=== PATIENT | male | born 2000 ===

== ENCOUNTER 2019-12-18 04:24 | Emergency (ER) | payer SELFPAY ==
--- NOTE | 2019-12-18 05:59 | ER ---
Nurse's Notes [facility] Name: Oleg Paige Age: 19 yrs Sex: Male : 2000 Arrival Date: 12/18/2019 Time: 04:28 Bed 7 Private MD: Diagnosis: Thoracic pain, unspecified Presentation: 12/17 04:40 Chief complaint: Patient states: I am having back pain started yesterday. it is like rr5 stabbing pain when I twist or move. denies trauma, no fever no abdominal pain, denies problem in urinating. Coronavirus screen: Proceed with normal triage. Ebola Screen: Patient negative for fever greater than or equal to 101.5 degrees Fahrenheit, and additional compatible Ebola Virus Disease symptoms Patient denies exposure to infectious person. Patient denies travel to an Ebola-affected area in the 21 days before illness onset. Initial Sepsis Screen: Does the patient meet any 2 criteria? No. Patient's initial sepsis screen is negative. Does the patient have a suspected source of infection? No. Patient's initial sepsis screen is negative. Risk Assessment: Do you want to hurt yourself or someone else? Patient reports no desire to harm self or others. Onset of symptoms was December 17, 2019. 04:40 Method Of Arrival: Ambulatory rr5 04:40 Acuity: CHAZ 3 rr5 Triage Assessment: 04:47 General: Appears in no apparent distress. uncomfortable, Behavior is calm, cooperative, ao appropriate for age. Musculoskeletal: Circulation, motion, and sensation intact. Range of motion: intact in all extremities. Historical: - Allergies: 04:43 No Known Allergies; rr5 - Home Meds: 04:43 None [Active]; rr5 - PMHx: 04:43 None; rr5 - PSHx: 04:43 None; rr5 - Immunization history:: Adult Immunizations not up to date. - Social history:: Smoking status: unknown Patient/guardian denies using alcohol, street drugs. - Family history:: not pertinent. - Hospitalizations: : No recent hospitalization is reported. Screenin:43 Abuse screen: Denies threats or abuse. Denies injuries from another. Nutritional rr5 screening: No deficits noted. Tuberculosis screening: No symptoms or risk factors identified. Fall Risk None identified. Total Pineda Fall Scale indicates No Risk (0-24 pts). Assessment: 04:44 General: Appears in no apparent distress. uncomfortable, well groomed, well developed, ao well nourished. Pain: Complains of pain in Back pain Pain radiates to left side Pain currently is 10 out of 10 on a pain scale. Quality of pain is described as stabbing, Pain began 1 day ago. Neuro: Level of Consciousness is awake, alert, obeys commands, Oriented to person, place, time, situation, Appropriate for age Moves all extremities. Full function Speech is normal, Facial symmetry appears normal, Pupils are PERRLA. Cardiovascular: Capillary refill < 3 seconds Patient's skin is warm and dry. Respiratory: Reports pain with respiration since yesterday Airway is patent Respiratory effort is even, unlabored, Respiratory pattern is regular, symmetrical. GI: No signs and/or symptoms were reported involving the gastrointestinal system. GI: Abdomen is non-distended. : No signs and/or symptoms were reported regarding the genitourinary system. EENT: No signs and/or symptoms were reported regarding the EENT system. Derm: Skin is intact, Skin is dry, Skin is normal, black, Skin temperature is warm. Musculoskeletal: Circulation, motion, and sensation intact. Range of motion: intact in all extremities. 05:33 Reassessment: Patient appears in no apparent distress at this time. No changes from ao previously documented assessment. Patient is alert, oriented x 3, equal unlabored respirations, skin warm/dry/pink. Waiting on dispo Orders. 05:35 Reassessment: Dr Hutchinson at bedside. ao 06:05 Reassessment: DC instructions given to patient. Patient agree with POC and to follow up ao with PCP. Patient agree to take ibuprofen OTC at home for patient. Educations given about ibuprofen. Vital Signs: 04:40 BP 126 / 63; Pulse 57; Resp 19; Temp 98.1; Pulse Ox 100% ; Weight 111.13 kg; Height 6 rr5 ft. 5 in. (195.58 cm); Pain 10/10; 05:33 BP 160 / 102; Pulse 70; Resp 19; Pulse Ox 98% on R/A; ao 04:40 Body Mass Index 29.05 (111.13 kg, 195.58 cm) rr5 ED Course: 04:28 Patient arrived in ED. ag3 04:30 Santos Hutchinson MD is Attending Physician. rn 04:38 EKG done, by ED staff, reviewed by Santos Hutchinson MD. ao 04:43 Triage completed. rr5 04:43 Edgar Queen, RN is Primary Nurse. ao 04:43 Arm band placed on right wrist. EKG completed in triage. Results shown to MD. rr5 04:44 Patient has correct armband on for positive identification. Bed in low position. Call rr5 light in reach. monitoring coordinator on. Pulse ox on. NIBP on. 05:03 XRAY Chest Pa And Lat (2 Views) In Process Unspecified. EDMS 06:05 No provider procedures requiring assistance completed. Patient did not have IV access ao during this emergency room visit. Administered Medications: No medications were administered Outcome: 05:58 Discharge ordered by . rn 06:05 Discharged to home ambulatory. ao 06:05 Condition: stable 06:05 Discharge instructions given to patient, Instructed on discharge instructions, follow up and referral plans. Demonstrated understanding of instructions, follow-up care, medications. 06:06 Patient left the ED. ao Signatures: Dispatcher [employer] EDMS Santos Hutchinson MD MD rn Edgar Queen, RN RN Charity Golden ag3 Luis Stephens RN RN rr5
--- NOTE | 2019-12-18 05:59 | EDPHYS ---
Physician Documentation [facility] Name: Oleg Paige Age: 19 yrs Sex: Male : 2000 Arrival Date: 12/18/2019 Time: 04:28 Bed 7 Private MD: ED Physician Santos Hutchinson HPI: 12/17 04:52 This 19 yrs old Black Male presents to ER via Ambulatory with complaints of Back Pain. rn 04:52 The patient presents with pain that is acute, with no known mechanism of injury. The rn symptoms are located in the right posterior thorax. 04:53 Onset: The symptoms/episode began/occurred yesterday. The pain does not radiate. rn Associated signs and symptoms: The patient has no apparent associated signs or symptoms, Pertinent negatives: abdominal pain, fever, incontinence, numbness, tingling, urinary retention, vomiting, weakness. Modifying factors: The patient symptoms are alleviated by nothing, the patient symptoms are aggravated by any movement. Severity of symptoms: At their worst the symptoms were mild, in the emergency department the symptoms are unchanged. The patient has not experienced similar symptoms in the past. The patient has not recently seen a physician. Reports right posterior pain, located along right posterior ribs, hurts to touch/twist/breathe, no fever/cough/sob. No trauma. . Historical: - Allergies: 04:43 No Known Allergies; rr5 - Home Meds: 04:43 None [Active]; rr5 - PMHx: 04:43 None; rr5 - PSHx: 04:43 None; rr5 - Immunization history:: Adult Immunizations not up to date. - Social history:: Smoking status: unknown Patient/guardian denies using alcohol, street drugs. - Family history:: not pertinent. - Hospitalizations: : No recent hospitalization is reported. ROS: 04:53 Constitutional: Negative for fever, chills, and weight loss, Eyes: Negative for injury, rn pain, redness, and discharge, Neck: Negative for injury, pain, and swelling, Cardiovascular: Negative for palpitations, and edema, Respiratory: Negative for shortness of breath, cough, wheezing Abdomen/GI: Negative for abdominal pain, nausea, vomiting, diarrhea, and constipation, : Negative for injury, bleeding, discharge, and swelling, MS/Extremity: Negative for injury and deformity, Skin: Negative for injury, rash, and discoloration, Neuro: Negative for headache, weakness, numbness, tingling, and seizure. Exam: 04:53 Constitutional: This is a well developed, well nourished patient who is awake, alert, rn and in no acute distress. Ambulatory to room without difficulty or distress Head/Face: Normocephalic, atraumatic. Chest/axilla: Normal chest wall appearance and motion. Nontender with no deformity. No lesions are appreciated. Cardiovascular: Bradycardic, regular rhythm, intact distal pulses Respiratory: Speaking full sentences. No increased work of breathing, no retractions or nasal flaring. Abdomen/GI: soft, non-tender Back: No spinal tenderness. No costovertebral tenderness. MS/ Extremity: Pulses equal, no cyanosis. Neurovascular intact. Full, normal range of motion. Equal circumference. Neuro: Awake and alert, GCS 15, oriented to person, place, time, and situation. Cranial nerves II-XII grossly intact. Motor strength 5/5 in all extremities. Sensory grossly intact. Cerebellar exam normal. Normal gait. 04:56 ECG was reviewed by the Attending Physician. rn Vital Signs: 04:40 BP 126 / 63; Pulse 57; Resp 19; Temp 98.1; Pulse Ox 100% ; Weight 111.13 kg; Height 6 rr5 ft. 5 in. (195.58 cm); Pain 10/10; 05:33 BP 160 / 102; Pulse 70; Resp 19; Pulse Ox 98% on R/A; ao 04:40 Body Mass Index 29.05 (111.13 kg, 195.58 cm) rr5 MDM: 04:30 Patient medically screened. rn 05:55 Differential diagnosis: pleurisy, chest wall pain, pneumothorax, pneumonia. Data rn reviewed: vital signs, nurses notes, EKG, radiologic studies, plain films, and as a result, I will discharge patient. Counseling: I had a detailed discussion with the patient and/or guardian regarding: the historical points, exam findings, and any diagnostic results supporting the discharge/admit diagnosis, lab results, radiology results, the need for outpatient follow up, to return to the emergency department if symptoms worsen or persist or if there are any questions or concerns that arise at home. Special discussion: Based on the patient's history, exam, and Dx evaluation, there is no indication for emergent intervention or inpatient Tx. It is understood by the patient/guardian that if the Sx's persist or worsen they need to return immediately for re-evaluation. I discussed with the patient/guardian in detail that at this point there is no indication for admission to the hospital. It is understood, however, that if the symptoms persist or worsen the patient needs to return immediately for re-evaluation. Based on the history and exam findings, there is no indication for further emergent testing or inpatient evaluation. I discussed with the patient/guardian the need to see the primary care provider for further evaluation of the symptoms. ED course: No ischemia on ecg, normal CXR, will dc home with return precautions and motrin prn.. 12/17 04:39 Order name: XRAY Chest Pa And Lat (2 Views) rn 12/17 04:39 Order name: EKG - Nurse/Tech; Complete Time: 04:43 rn EC:56 Rate is 54 beats/min. Rhythm is regular. QRS Maxwell is Normal. TX interval is normal. QRS rn interval is normal. QT interval is normal. No Q waves. T waves are Normal. No ST changes noted. Clinical impression: Sinus bradycardia. Interpreted by me. Reviewed by me. Administered Medications: No medications were administered Disposition: 12/18/19 05:58 Discharged to Home. Impression: Thoracic pain, unspecified. - Condition is Stable. - Discharge Instructions: Chest Wall Pain, Pleurisy. - Medication Reconciliation Form, Thank You Letter, Antibiotic Education, Prescription Opioid Use form. - Follow up: Private Physician; When: As needed; Reason: Recheck today's complaints, Re-evaluation by your physician. - Problem is new. - Symptoms have improved. Signatures: Dispatcher [employer] EDSantos Cavazos MD MD rn Ortiz, Alex, RN RN ao Roque, Raymond RN RN rr5 Corrections: (The following items were deleted from the chart) 06:06 05:58 12/18/2019 05:58 Discharged to Home. Impression: Thoracic pain, unspecified. ao Condition is Stable. Forms are Medication Reconciliation Form, Thank You Letter, Antibiotic Education, Prescription Opioid Use. Follow up: Private Physician; When: As needed; Reason: Recheck today's complaints, Re-evaluation by your physician. Problem is new. Symptoms have improved. rn
[2019-12-18 06:13] VITALS: TEMP 98.1
[2019-12-18 06:19] VITALS: BP 160/102; O2SAT 98
--- NOTE | 2019-12-18 11:31 | EKG ---
Test Date: 2019-12-18 Test Time: 04:43:01 [employer]: DEZ MEASUREMENT RESULTS: Intervals: Rate: 54 MN: 192 QRSD: 90 QT: 400 QTc: 379 Mobile: P: 5 MN: 192 QRS: 64 T: 74 INTERPRETIVE STATEMENTS: Sinus bradycardia with sinus arrhythmia Early repolarization Otherwise normal ECG No previous ECG available for comparison Electronically Signed On 12-18-19 11:29:38 CDT by Nahid Mckinney
--- NOTE | 2019-12-19 10:22 | RAD REPORT ---
EXAM DESCRIPTION: CHEST, TWO VIEW, XR CLINICAL HISTORY: Thoracic pain, pleurisy COMPARISON: None. TECHNIQUE: PA and lateral Chest. FINDINGS: Normal cardiac size. Pulmonary vasculature appears normal. Normal cardiomediastinal contou rs. Lungs are clear. Pleural spaces are clear. Unremarkable soft tissues and bones. IMPRESSION: 1. No acute cardiopulmonary finding. Electronically signed by: Alysha Levin DO 12/18/2019 5:29 AM CDT Due to temporary technical issues with the PACS/Fluency reporting system, reports are being signed by the in house radiologist as a courtesy to ensure prompt reporting. The interpreting radiologist is f ully responsible for the content of the report.
== END 2019-12-18 06:06 | disposition home or self-care (01) ==
LOC: ER 04:24
DX: M54.6 Pain in thoracic spine (principal)
CPT/HCPCS: 71046; 93005; 99284